=== PATIENT | female | born 2005 | race Caucasian/White ===

== ENCOUNTER 2024-11-06 08:00 | Outpatient (RCR) | payer OTHER, SELFPAY ==
--- NOTE | 2024-11-06 09:00 | BH.SGPN.GN ---
Behaviors/Verbalizations/Mental Status: [] Pt alert and oriented, neatly dressed and groomed. Eye contact good. Motor activity appropriate. Speech within normal limits. Affect congruent, mood hopeful. Thoughts linear, logical, no signs of hallucinations or delusions. Reviewed pt?s symptom tracker, no risk for suicidal ideation, plan, or intent 11/07/24. Client Response/Progress/Benefit: [] Pt was an active participant in group discussions. Attentive. Able to identify mental health wins including ?I feel optimistic hearing from everyone on my first day.? Pt's stressor today is ?being here in treatment.? The group offered pt suggests managing this stressor and emotional support which pt reported was helpful. Pt is feeling ?optimistic? this morning. Pt receptive to feedback from peers. Benefited from group support, encouragement, and feedback. Progress noted. Will continue IOP tx to prevent decompensation, improve daily functioning, and reduce negative thinking patterns. ? Narrative Note: []
--- NOTE | 2024-11-06 09:00 | BH.COMM_ITS ---
Communication Note Communication with Client Communication Note: Met with pt to complete paperwork, update any changes to pre-admission screening, and complete risk assessment. Low risk on [place] [facility] Scre[facility]. Consulted with Dr. Newton regarding current symptoms with orders to admit to IOP with dx of F33.2
--- NOTE | 2024-11-06 11:10 | BH.SGPN.GN ---
Behaviors/Verbalizations/Mental Status: [] Client alert and oriented, casually dressed and groomed. Eye contact good. Motor activity appropriate. Speech within normal limits. Affect congruent, mood anxious. Thoughts linear, logical, no signs of hallucinations or delusions. Client Response/Progress/Benefit: [] Pt engaged in session AEB client listening attentively to peers and providing input. Attentive and contributed to discussion as group worked on identifying thought patterns and behaviors that negatively affect self-confidence. Pt identified behaviors that affect their confidence as: lack of self-care and negative self-talk. Engaged in confidence building activity and worked with the group to identify strategies for improving self-confidence. Pt identified plans to daily affirmations as a means of improving own self-confidence. Benefited from increased education on self-confidence building skills. Pt will continue IOP tx to increase self-confidence, improve emotional regulation skills, and prevent decompensation. Narrative Note: []
--- NOTE | 2024-11-06 13:38 | BH.MDN ---
Multi-Disciplinary Note Note 45-min Individual: Time Started:: 10:45 Date: 11/06/24 Purpose of session/treatment goals addressed:: To gather information on pt's current stressors, symptoms, triggers, history, and tx goals. Another goal was to build rapport and provide emotional support. Eye Contact:: Good Motor Activity:: Appropriate Appearance:: Casual Speech:: Appropriate Mood:: Euthymic Affect:: Full Thoughts:: Linear, Logical and No evidence of hallucinations/delusions noted Staff Interventions:: rapport building, strengths perspective, treatment planning and other (psychosocial assessment) Client Response:: Pt responded well to session, open to meeting with therapist. Pt reports being ready to be in IOP tx and shared pt enjoyed connecting with peers earlier. Pt states her biggest concerns are anxiety and not having a lot of self-confidence. Pt stated that their physical health issues play a role in their self-confidence. Pt shared they have had chronic health issues since around 8 years old. Pt is currently using a cane being of health issues and pt recently saw a functional medicine doctor which was validating. Pt shared they have been minimized by providers throughout their life and a lot of their symptoms have been contributed to pt's anxiety. Pt stated they do think there is a neurological component to their physical health issues, but there are a lot of medical things pt has that run in pt's family. Pt has been through eating disorder tx at the [facility] and this was somewhat helpful. Pt reports they no longer restrict, but they still struggle with ARFD but they are actively working on this. Pt has history of self-harm, but they have not for about three years now. Pt shared they have a pretty good support system including their fiance, their dad, their sister, and their mom. Pt reports they enjoy being challenged in therapy and they currently journal which is helpful. Risks/Concerns:: Pt denies any active suicidal ideation, plan, or intent as of 11/06/24. Progress Toward Goals/Plan:: Pt's first day of IOP tx and pt reports being in process group this morning made pt feel optimistic and ready to heal. Pt shared she has done other types of therapy in the past and found it helpful. Pt is currently established with [id number], but pt is working on transitioning to a telehealth platform to make it more convenient. Pt reports anxiety is their biggest concern and pt feels like anxiety consumes them. Pt will continue IOP tx to prevent decompensation, improve daily functioning, and gain self-confidence. Time Stopped:: 11:20
--- NOTE | 2024-11-06 13:41 | BH.MTP_ITS ---
Master Treatment Plan Patient Information Program Physician:: Dr. Isela Newton Primary Therapist:: Terri Maravilla Psychiatric Diagnoses Psychiatric Diagnoses:: MDD, recurrent, severe, without psychosis F 33.2; KALYAN; Eating Disorder Unspecified. Diagnosis Code(s):: F 33.2 Estimated LOS Estimated LOS (in weeks):: 6 Problem/Goal #1 Problem/Goal #1 Stated Goal:: Stabilize anxiety level while increasing ability to function on daily basis. Description of Barriers: Pt has numerous health issues that impact mental health and functioning including chronic fatigue syndrome, GARCIA, and pt uses a cane for assistance with walking. Pt also noted that they have been in therapy in the past and there have been times when it was not a good fit so pt ended treatment. Functional Impact: Pt is a 19-year-old who was referred to [facility] due to worsening symptoms of anxiety, depression, and chronic health issues. At admission, pt reports symptoms of lack of motivation, feeling like a burden, anhedonia, guilt, issues with sleep, racing thoughts, anxiety constantly, and fear that something bad will happen. Pt's symptoms are impacting daily functioning and pt is planning to take leave from work due to mental health symptoms. Goal Relevant Strengths/Supports: Pt is established with outpatient therapy and psychiatry. Pt has a healthy support- their fianc?. Pt is motivated and enjoys their job. Objectives Objective #1: Stated Objective: Client will learn and implement 2-3 calming skills to reduce overall anxiety and manage anxiety symptoms. Interventions: Therapist and group sessions will help client identify physiological warning signs of anxiety, increase awareness of thoughts that increase anxiety, and identify behaviors that reinforce anxious symptoms. Group and individual counseling will teach client calming skills to help manage anxious symptoms. Discharge Criteria: Client will have achieved this goal when can verbalize at least 2 calming skills and reports skills successfully help reduce anxious symptoms. Target Date: 12/18/24 Review Date: 11/27/24 Status: open Objective #2: Stated Objective: Pt will increase ability to manage stressors and anxiety by gaining 2-3 distress tolerance skills. Interventions: Therapist will provide education on anxiety and low distress tolerance. Therapist will help pt explore personal symptoms and warning signs of anxiety. Therapist will teach pt coping skills to improve emotional regulation, mindfulness, and distress tolerance to help pt cope with anxiety in the moment. Discharge Criteria: Pt will have accomplished this goal when can report improved ability to manage stressors and identify at least 2 distress tolerance skills. Target Date: 12/18/24 Review Date: 11/27/24 Status: open Problem/Goal #2 Problem/Goal #2 Stated Goal:: Client will decrease depression, low motivation, and negative thinking patterns due to Major Depression Disorder through Intensive Outpatient Program. Description of Barriers: Pt has numerous health issues that impact mental health and functioning including chronic fatigue syndrome, GARCIA, and pt uses a cane for assistance with walking. Pt also noted that they have been in therapy in the past and there have been times when it was not a good fit so pt ended treatment. Functional Impact: Pt is a 19-year-old who was referred to [facility] due to worsening symptoms of anxiety, depression, and chronic health issues. At admission, pt reports symptoms of lack of motivation, feeling like a burden, anhedonia, guilt, issues with sleep, racing thoughts, anxiety constantly, and fear that somet carey bad will happen. Pt's symptoms are impacting daily functioning and pt is planning to take leave from work due to mental health symptoms. Goal Relevant Strengths/Supports: Pt is established with outpatient therapy and psychiatry. Pt has a healthy support- their fianc?. Pt is motivated and enjoys their job. Objectives Objective #1: Stated Objective: Client will learn and utilize 2-3 healthy coping strategies to manage depressive symptoms. Interventions: Therapist will utilize CBT techniques to assist client with understanding the connection between thoughts, feelings and behaviors. Education will be provided on behavioral activation. Therapist will assist client in learning internal coping strategies to manage depressive symptoms, along with helping client identify triggers. Discharge Criteria: Client will have achieved this goal when can verbalize and has practiced at least 2 healthy coping strategies that successfully manage depressive symptoms. Target Date: 12/18/24 Review Date: 11/27/24 Status: open Objective #2: Stated Objective: Client will identify and replace 2-3 negative thinking patterns that reinforce depressive symptoms. Interventions: Therapist will assist client in developing an awareness of the cognitive messages that reinforce depressive thinking. Therapist will also assist client in challenging negative thinking patterns. Discharge Criteria: Client will have achieved this goal when can identify at least 2 negative thinking patterns, replace negative thinking with more positive, affirmative messages and state no longer having thoughts of hurting self. Target Date: 12/18/24 Review Date: 11/27/24 Status: open
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
--- NOTE | 2024-11-08 09:05 | BH.SGPN.GN ---
Behaviors/Verbalizations/Mental Status: [] Pt alert and oriented, casually dressed and groomed. Eye contact good. Motor activity appropriate. Speech within normal limits. Affect congruent, mood calm. Thoughts linear, logical, no signs of hallucinations or delusions. Reviewed pt?s symptom tracker, no reported Si, plan, or intention. Client Response/Progress/Benefit: []Pt was an active participant in group discussions. Attentive. Pt stated that her mental health positive as walking IOP today which she found to helpful with getting her moving this morning. Pt reported additional mental health positive as starting to get some answers and direction for her health issues after meeting with several doctors recently. Pt stated it is helpful to have direction with her health even if there isn't concrete answers yet. Pt reported her stressor as continued medical issues. Pt seemed to benefit from support from peers. Will continue IOP services to increase healthy coping, challenge distorted thoughts, and prevent decompensation. Narrative Note: []
--- NOTE | 2024-11-08 10:05 | BH.SGPN.GN ---
Behaviors/Verbalizations/Mental Status: [] Eye contact is good. Motor activity is appropriate. Appearance is casual. Speech is Appropriate. Mood is content. Affect is congruent. Thoughts are linear and logical. No evidence of psychosis. Client Response/Progress/Benefit: [] Pt engaged participant AEB listening to others, engaging in activity, and providing feedback throughout. Attentive during psychoeducation and provided insight into obstacles that impede mental wellness. Pt shared with group current mental health reality and desired mental health reality. Identified barriers to desired reality which included difficulties with communication and perfectionism. Benefited from taking look at current mental health state and obstacles for progress. Pt to continue in IOP tx to prevent decompensation, stabilize mood, and improve functioning. Narrative Note: []
--- NOTE | 2024-11-08 11:10 | BH.SGPN.GN ---
Behaviors/Verbalizations/Mental Status: [] Eye contact is good. Motor activity is appropriate. Appearance is casual. Speech is Appropriate. Mood is depressed and anxious. Affect is congruent. Thoughts are linear and logical. No evidence of psychosis. Client Response/Progress/Benefit: [] Pt was an engaged participant in group discussion and activity. Worked with group to identify strategies to help overcome barriers and obstacles to desired reality. Group developed strategies for the common barriers. Identified personal barriers to desired reality which included catastrophizing and fear of moving forward. Was able to identify a skill to implement immediately to address fears. Pt seemed to benefit from increased repertoire of healthy coping skills/strategies to overcome common barriers to moving forward. Pt is to continue IOP prevent decompensation, increase healthy coping,and improve functioning. Narrative Note: []
--- NOTE | 2024-11-09 11:00 | BH.NA ---
Physical Data Vital Signs Pulse Rate: 81 Blood Pressure: 138/85 Height/Weight Height: 1.63 m Weight:: 59.874 kg Weight in Pounds: 132.0 lbs Current Medication Compliance Medication Compliance Do you take your medication as prescribed?: Yes Sensory/Communication Assess Communication Problems Do you have difficulty understanding what people are saying?: No Medical Problems/History Cardiac Conditions Cardiovascular: Other (See comments) (has been recently diagnosed with dysautonoma- still determining if it is POTS- sees a functional medicine doctor) Respiratory Conditions Respiratory: Asthma and Other (See comments) (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) Metabolic Conditions Metabolic: Other (See comments) (has had some issues with hypoglycemia before- states she plans and eats something every few hours to prevent these episodes) Gastrointestinal Conditions Gastrointestinal: Other (See comments) (has been having abdominal pain since around age 9- now contributed to dysautonomia- takes fiber daily to help) Musculoskeletal Conditions Musculoskeletal: Other (See comments) (uses cane to help her go from sitting to standing with dysautonomia- causes some dizziness- denies syncope) Additional History Additional comments:: recently diagnosed with chronic fatigue syndrome Surgical History Surgical History Have you had any surgeries? If so, list type and date:: Yes (tonsilectomy, tubal ligation) Substance Abuse Substance Abuse Please describe substance abuse in the last 30 days:: Client denies alcohol use. Client has been vaping nicotine daily for about 2 years. Client has a medical marijuana card and states she uses marijuana daily. Client has 1 cup of coffee per day. Mental Status Summary Mental Status Significant Findings/Observations on Appearance and Mood:: Client is alert and oriented x 4. Client is casually groomed with good hygiene. Client is cooperative with assessment. Client makes good eye contact. Client's voice has normal rate and volume. Client has appropriate affect. Client makes logical associations and has normal processing. Client denies delusions/hallucinations. Client denies SI. Suicide Assessment Suicidal Ideation Are you currently or have you been suicidal in the past?: Yes Suicidal Intentional Rating Scale (SIRS): Suicidal thoughts (past) Physician Notification Past Psychiatric History MH Treatment Hx Past Psychiatric Medications:: Strattera, Lamictal Age of first mental health symptoms: Client states she first felt anxious around age 9 and started having panic attacks and her stomach issues also started. Describe (age, circumstance, etc) any past hospitalizations: 2022 at [facility] Current providers for mental health treatment (counselor, psychiatrist, returned case inspector, etc.): has been seeing [facility] but has an intake next week with [facility] for psychiatry and therapy Fall Risk Assessment Age Age: Less than 60 Mental Status Mental Status: Willing & able to ask for assistance when needed Physical Status Physical Status: No problems Impairments Impairments: None Elimination Elimination: Continent AND independent Gait or Balance Gait or Balance: Walks with assistive device (e.g. cane, walker) Hx of Falls History of falls in the past 6 months: No known history Medications/Substances Psychotropics:: Antidepressants and Antipsychotics Others:: Antihypertensives Medications/substances used within the past 24 hours or ordered to administer: 3 or more of the medications/substances listed above Total Score Total Points:: 3 RN Summary of Impressions Impressions Recommendations Impressions: Psychiatric Issues: major depressive disorder, generalized anxiety disorder, borderline personality disorder Impression: General Medical Conditions: sees functional medicine for newly diagnosed dysautonomia- walks with cane to help go from sitting to standing. Level of Care How do the client's current symptoms and functional deficits support need for this level of care?: Client referred herself to IOP after seeking IOP/PHP online and finding this one that was close to where to she lives. Client was in [facility] in August 2024 for two weeks for her unspecified eating disorder (states she has had this since around age 12). Client states she felt unsafe there and left AMA, but knew she needed an IOP or PHP for her mental health. Client states her eating has somewhat improved since being in the [facility] and states she has gained some weight and still has more to gain per her medical team. Client states she does have a health head athletic trainer/strength coach, lard maker, and functional medical doctor she follows with. Client has been having ongoing health issues and was recently diagnosed with dysautonomia with some testing still being done. Client uses cane to walk to steady herself. Client states she started on Abilify about 5 days ago and does state she has felt positive effects from this. Client reports intrusive thoughts about something bad happening, decreased motivation, and low self-confidence. Client is hopeful IOP will help her with confidence. Client denies SI at this time. IOP will promote gains and prevent further decompensation while providing social support and skills training. Nutritional Screen Height/Weight Height: 1.63 m Weight:: 59.874 kg Weight in Pounds: 132.0 lbs Nutrition Screening Normal Weight: 58.967 kg Normal/Usual Weight in Pounds: 130.0 lbs Have you lost weight without trying: No (hx eating disorder since age 12, recently in [facility], eating has improved and she is gaining weight slowly) Have you been eating poorly because of a decreased appetite: No Recently been on tube feeds, TPN, or have any nutritional access device in place: No Have any large open wounds or wounds that are not healing: No Calculated Weight Change: [id number] Change in weight Score: 1 MST Screening Tool Score: 1
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
--- NOTE | 2024-11-09 11:02 | BH.DR.ITP ---
Initial Treatment Plan Patient Information Visit Information: ADMISSION DATE: EXPECTED LOS: 6-8 weeks Diagnoses:: MDD, KALYAN Problems/Symptoms Problem #1:: MDD Symptom:: Patient reported depressed mood, suicidal ideation, anhedonia, poor appetite, poor sleep, low energy, difficulty with concentration as well as crying spells and excessive guilt Problem #2:: KALYAN Symptom:: igh levels of baseline anxiety about everything including health, finances, doors being closed and secured etc
[2024-11-09 11:34] VITALS: BP 138/85; PULSE 81
--- NOTE | 2024-11-14 09:00 | BH.SGPN.GN ---
Behaviors/Verbalizations/Mental Status: [] Client alert and oriented, casual appearance. Eye contact good. Motor activity appropriate. Speech within normal limits. Affect congruent, mood anxious. Thoughts linear, logical, no signs of hallucinations or delusions. Reviewed client's symptom tracker, no risk for suicidal ideation, plan, or intent. Client Response/Progress/Benefit: [] Client responded well to session AEB listening to others and sharing thoughts/feelings. Client reported mental positive as being able to challenge guilt for canceling a IOP day earlier this week when she didn't feel good. Client reported additional positive as feeling more present and less dissociated yesterday. Client noted current stressor is continuing to work through health issues and her partner switching jobs. Appeared to benefit from support from peers. Will continue IOP tx to improve confidence, increase distress tolerance, and prevent decompensation.
--- NOTE | 2024-11-14 10:10 | BH.SGPN.GN ---
Behaviors/Verbalizations/Mental Status: []Pt alert and oriented, neatly dressed and groomed. Eye contact fair. Motor activity appropriate. Speech within normal limits. Affect congruent, mood engaged. Thoughts linear, logical, no signs of hallucinations or delusions Client Response/Progress/Benefit: [] Pt took notes and contributed to group discussions. Attentive during psychoeducation on growth mindset. Interactive group discussion on fixed mindset in which group verbalized their current fixed mindsets and how they affect their mental health. Pt shared common fixed mindset thoughts they have. Pt shared a personal fixed thought I can?t finish things and I can?t get better.? Pt able to connect negative impact fixed thoughts have on functioning. Pt benefited from increased awareness of growth mindset and fixed thoughts and how fixed thoughts impact their mental health. Will continue IOP tx to prevent decompensation, improve daily functioning, and gain healthy coping skills. ? Narrative Note: []
--- NOTE | 2024-11-14 11:15 | BH.SGPN.GN ---
Behaviors/Verbalizations/Mental Status: []Pt alert and oriented, casually dressed and groomed. Eye contact good. Motor activity appropriate. Speech within normal limits. Affect congruent, mood content. Thoughts linear, logical, no signs of hallucinations or delusions. Client Response/Progress/Benefit: [] Pt was an active participant during activity and discussion. Pt did well to remain attentive and participate as group worked on identifying characteristics and benefits of adopting a growth mindset. Worked with fellow participants in reframing the example fixed thoughts into growth mindset thoughts. Pt worked on changing own fixed thought. Pt?s reframed thought was ?I am able to learn how to manage my sx everyday? Pt attentive during discussion about different strategies that can help with fostering a growth mindset. Pt appeared to benefit from challenging own thoughts and engaging in the activity. Pt will continue IOP tx to increase distress tolerance, improve self-compassion, and prevent decompensation. Narrative Note: []
--- NOTE | 2024-11-15 09:05 | BH.SGPN.GN ---
Behaviors/Verbalizations/Mental Status: [] Eye contact is good. Motor activity is appropriate. Appearance is casual. Speech is Appropriate. Mood is euthymic. Affect is full. Thoughts are linear and logical. No evidence of psychosis. Reviewed daily check in sheet and no reports of suicidal ideations or intent. Client Response/Progress/Benefit: [] Pt was an active participant in group discussions. Attentive. Daily symptom tracker notes 04/04 for depression and anxiety. Able to identify mental health wins and healthy habits. She shared with the group that she recently reframed how she perceives her goals. It was a very simple change in that she changed the wording from weekly goals to weekly experiments. This perspective all her to be view setback in a growth mindset. She made dinner last night and felt accomplished. Utilizing opposite-action, re-framing, goal setting which has significantly benefited her mental health this week. Progress noted. Benefited from group support, encouragement, and feedback. Will continue in IOP to prevent decompensation, increase healthy coping, and improve functioning. Narrative Note: []
--- NOTE | 2024-11-15 10:10 | BH.SGPN.GN ---
Behaviors/Verbalizations/Mental Status: [] Eye contact is good. Motor activity is appropriate. Appearance is casual. Speech is Appropriate. Mood is dysthymic. Affect is congruent. Thoughts are linear and logical. No evidence of psychosis. Client Response/Progress/Benefit: [] Pt was engaged and participating throughout, providing input and taking notes. Attentive during psychoeducation on anxiety and cognitive triangle. Participated in an interactive discussion on defining anxiety and identifying cognitive and physiological symptoms of anxiety. The group discussed helpful vs harmful anxiety. Pt identified their physical/physiological signs of anxiety which includes: headache, stomach issues, restlessness, and temp dysregulation. Benefited from increased awareness and insight on anxiety and its impact. Will continue in IOP to prevent decompensation, stabilize mood, and promote use of healthy coping skills.
--- NOTE | 2024-11-15 11:15 | BH.SGPN.GN ---
Behaviors/Verbalizations/Mental Status: []Pt alert and oriented, casually dressed and groomed. Eye contact good. Motor activity appropriate. Speech within normal limits. Affect congruent, mood euthymic. Thoughts linear, logical, no signs of hallucinations or delusions. Client Response/Progress/Benefit: [] Pt was an active participant AEB pt providing input and listening attentively to peers. Attentive during psychoeducation on mindfulness coping skills and their impact on reducing anxiety and improving overall mental health wellness. Group was able to identify self-soothing and mind-based coping skills which included: 5-senses, meditation, deep breathing, TIPP, thought challenging, categories, and progressive muscle relaxation. Pt would like to work on using meditation more regularly to reduce anxiety. Appeared to benefit from increasing repertoire of anxiety reduction skills. Pt will continue IOP to increase distress tolerance skills, improve daily functioning, and reduce negative self-talk. Narrative Note: []
--- NOTE | 2024-11-15 14:34 | BH.MDN ---
Multi-Disciplinary Note Note 45-min Individual: Time Started:: 12:10 Date: 11/15/24 Purpose of session/treatment goals addressed:: To work on goal #1 of pt's tx plan and to practice dialectical thinking. Eye Contact:: Good Motor Activity:: Appropriate Appearance:: Casual Speech:: Appropriate Mood:: Euthymic Affect:: Full Thoughts:: Linear, Logical and No evidence of hallucinations/delusions noted Staff Interventions:: thought challenging, mindfulness skills, strengths perspective, goal setting and taught coping skills (dialectical thinking) Client Response:: Pt responded well to session, open to meeting with therapist. Pt reports today's topic was helpful and shared she benefitted from looking into her anxiety thought patterns and safety behaviors. Pt stated her safety behaviors include reassurance seeking, skin-picking, under eating, and conflict avoidance. Pt shared she also connected a lot with perfectionism as a safety behavior. Pt stated in high school she did everything and this ended up burning pt out quite a bit. Pt shared she has been trying to work on being less perfectionistic and pt was receptive to the idea of using dialectical thinking to help with this. Discussed what dialectical thinking is and how it can help pt. Pt reflected on current progress as well as progress pt would still like to see. Pt shared one of the things she has noticed is her anxiety is still higher than I'd like it to be. Pt plans to bring this up to her outpatient medication provider. Pt shared even though it is higher than pt would like, pt feels she is coping much better than she was previously. Risks/Concerns:: Pt denies any suicidal ideation, plan, or intent. Pt denies any thoughts of . Progress Toward Goals/Plan:: Pt continues to respond well to IOP tx AEB pt's report of using healthy coping skills outside IOP and report of tolerating her Abilify well. Pt stated she still feels that her anxiety is higher than baseline and pt wants to bring up alternative medication ideas to her outpatient psychiatrist. Pt receptive to working on dialectical thinking for homework. Pt will continue IOP tx to promote mood stability, combat distortions, and improve self-compassion. Time Stopped:: 12:50
--- NOTE | 2024-11-21 09:00 | BH.SGPN.GN ---
Behaviors/Verbalizations/Mental Status: [] Pt alert and oriented, neatly dressed and groomed. Eye contact good. Motor activity appropriate. Speech within normal limits. Affect congruent, mood anxious. Thoughts linear, logical, no signs of hallucinations or delusions. Reviewed pt?s symptom tracker, no risk of suicidal ideation, plan, or intent 11/21/24. Client Response/Progress/Benefit: []Pt was an active participant in group discussions. Attentive. Per patients daily symptom tracker, pt indicates a 2/5 for depression, with a 5 being severe, and a 3/5 for anxiety. Pt's mental health positives included making it to group despite being tired, and enjoying a busy weekend of seeing family members. The client stated that while the weekend was tiring, she was able to enjoy herself and appreciated being able to connect with family members. She also expressed happiness at being able to show up for group despite being tired. Pt's stressor is her who is struggling with his current job. The client reports that she is anxious and stressed as her does not enjoy his job and has been very anxious. Pt seemed to benefit from support from peers. Will continue PHP tx to promote increased confidence, reduce negative thinking patterns, and prevent decompensation.
--- NOTE | 2024-11-21 10:10 | BH.SGPN.GN ---
Behaviors/Verbalizations/Mental Status: [] Client alert and oriented, casually dressed and groomed. Eye contact good. Motor activity appropriate. Speech within normal limits. Affect congruent, mood euthymic Thoughts linear, logical, no signs of hallucinations or delusions. Client Response/Progress/Benefit: [] Client responded well to session AEB taking notes throughout and listening attentively to others. Client was attentive throughout group activity identifying famous individuals and how they overcame failure to be successful. Client helped group identify how fear of failure can impact mental health and relationships. Client personally identified it leads isolation. Client participated in experiential activity, working with group members to problem solve. Appeared to benefit from increased knowledge of fear of failure. Will continue IOP tx to improve self-confidence, reduce distorted thinking patterns, and reduce avoidance. Narrative Note: []
--- NOTE | 2024-11-21 11:10 | BH.SGPN.GN ---
Behaviors/Verbalizations/Mental Status: [] Client alert and oriented, casually dressed and groomed. Eye contact good. Motor activity appropriate. Speech within normal limits. Affect constricted, mood euthymic. Thoughts linear, logical, no signs of hallucinations or delusions. Client Response/Progress/Benefit: [] Client responded well to session, engaged in the experiential activity and attentive throughout group processing. Client reported fear of failure has kept client from having relationships. Client completed fear of failure worksheet and was able to identify thoughts and behaviors that reinforce personal fear of failure including self doubt. Client participated in small group discussion regarding strategies to overcome fear of failure. Identified wanting to practice radical acceptance and centeno thinking. Appeared to benefit from increased knowledge of strategies to combat fear of failure and gaining self-awareness. Client will continue IOP tx promote gains and increase overall functioning. Narrative Note: []
--- NOTE | 2024-11-23 09:05 | BH.SGPN.GN ---
Behaviors/Verbalizations/Mental Status: [] Eye contact is good. Motor activity is appropriate. Appearance is casual. Speech is Appropriate. Mood is euthymic. Affect is full. Thoughts are linear and logical. No evidence of psychosis. Reviewed daily check in sheet and no reports of suicidal ideations or intent. Client Response/Progress/Benefit: [] Pt was an active participant in group discussions. Attentive. Daily symptom tracker notes 3/5 for anxiety and 2/5 for depression/irritability. Shared with the group ?significant? panic attacks and mental health crisis yesterday. Proud of herself for ?working through it?. ?My fianc? said it was the worse he has seen me?. Did not elaborate on the trigger however increase confidence in her ability to manage panic in the future as she ?made it through that one?. Progress noted. Benefited from group support, encouragement, and feedback. Will continue in IOP to maintain safety, increase healthy coping, and prevent decompensation.? Narrative Note: []
--- NOTE | 2024-11-23 10:10 | BH.SGPN.GN ---
Behaviors/Verbalizations/Mental Status: [] Client alert and oriented, casual appearance. Eye contact good. Motor activity appropriate. Speech within normal limits. Affect congruent, mood euthymic. Thoughts linear, logical, no signs of hallucinations or delusions. Client Response/Progress/Benefit: [] Pt receptive to session AEB contributing to small group discussion, as well as listening attentively to others, and taking notes. Worked with group to brainstorm the positive and negative aspects of stress on physical and mental health. Group did well to identify the benefits of stress as well as the impact of distress on performance, relationships, and mental health. Pt identified their personal top stressors as: relationships, health, and finances. Patient stated when stress is overwhelming they tend to feel irritable, have apathy, and isolate. Pt seemed to benefit from increased awareness of current stressors and impact stress has on mental health. Pt will continue IOP tx to improve emotion regulation, challenge negative thoughts, and prevent decompensation.
--- NOTE | 2024-11-23 11:05 | BH.SGPN.GN ---
Behaviors/Verbalizations/Mental Status: [] Eye contact is good. Motor activity is appropriate. Appearance is casual. Speech is Appropriate. Mood is euthymic. Affect is congruent. Thoughts are linear and logical. No evidence of psychosis. Client Response/Progress/Benefit: [] Pt was an attentive participant in group discussions and actively engaged during experiential activity. Attentive during psychoeducation on the 4 A's (Avoid, adapt, alter, accept) of coping with stress. Identified one of the 4 A's to address one their top stressors.. Participated with peers on identifying the connection between the experiential activity and utilization of stress management skills. According to group both the activity and stress management require; adjusting strategies, reliance on larger support group, and oftentimes can't be done alone. Benefited from increased awareness of stress management strategies. Pt will continue IOP to improve mood stability, increase healthy copiong, and prevent decompensation. Narrative Note: []
--- NOTE | 2024-11-27 09:05 | BH.SGPN.GN ---
Behaviors/Verbalizations/Mental Status: [] Pt alert and oriented, neatly dressed and groomed. Eye contact good. Motor activity appropriate. Speech within normal limits. Affect constricted, mood anxious and optimistic. Thoughts linear, logical, no signs of hallucinations or delusions. Reviewed pt?s symptom tracker, no risk for suicidal ideation, plan, or intent 11/27/24. Client Response/Progress/Benefit: [] Pt was an active participant in group discussions. Attentive. Able to identify mental health wins including ?I had some medication changes yesterday and I didn?t shut down from the stress.? Pt feels that she is dealing with stressors better than she would have in the past. Pt's stressor today is ?my health and hormones have just been tough.? The group offered pt suggests managing this stressor and emotional support which pt reported was helpful. Pt is feeling ?foggy but optimistic? this morning. Pt receptive to feedback from peers. Benefited from group support, encouragement, and feedback. Progress noted. Will continue IOP tx to promote mood stability, reduce negative self-talk, and improve daily functioning. Narrative Note: []
--- NOTE | 2024-11-27 10:10 | BH.SGPN.GN ---
Behaviors/Verbalizations/Mental Status: [] Client alert and oriented, casually dressed and groomed. Eye contact good. Motor activity appropriate. Speech within normal limits. Affect congruent, mood euthymic. Thoughts linear, logical, no signs of hallucinations or delusions. Client Response/Progress/Benefit: [] Client responded well to session, contributing to discussion and engaged during the activity. Group identified the benefits of change which included: increased confidence, progressing towards goals, and improving mental and physical health. Worked with the group to identify barriers to change, which included: uncomfortable emotions such as anxiety, lack of energy, lack of supports, and negative influences. Client participated along with group in activity where they identified and discussed the emotions related to change. Benefited from increased awareness and understanding of emotions, benefits, and barriers related to change. Will continue IOP tx to challenge distortions, improve confidence, and prevent decompensation.
--- NOTE | 2024-11-27 13:52 | BH.MDN_ITS ---
Multi-Disciplinary Note Note 30-min Individual: Time Started:: 11:30 Date: 11/27/24 Purpose of session/treatment goals addressed:: To review strategies that have been helping pt cope and to set goals for the week. Eye Contact:: Good Motor Activity:: Appropriate Appearance:: Neat Speech:: Appropriate Mood:: Euthymic and Anxious Affect:: Full Thoughts:: Linear, Logical and No evidence of hallucinations/delusions noted Staff Interventions:: CBT techniques, strengths perspective, reviewed DSM- 5 and goal setting Client Response:: Pt responded well to session, open to meeting with therapist. Pt reports feeling overall anxious and shared I still feel like my anxiety is at like a 7/10. Pt acknowledges that certain stressors, including their fiances job, has contributed to the higher anxiety. Pt stated he just put in his resignation, so pt is hoping this reduces anxiety and stress for the both of them. Pt also had some medical frustrations recently and this has been leading to higher anxiety as well. Pt feels they are coping well with these stressors and shared that this weekend pt let myself have a mini meltdown and then pt was able to use other coping skills. We normalized this as realistic progress and therapist reminded pt to continue utilizing dialectical thinking so pt does not frame their responses as all good or all bad. Pt has been working on being more mccollum with their thinking and striving to be less perfectionistic. Pt reports plan to continue practicing calming skills as well as reframing skills for their weekly goal. Risks/Concerns:: denies any suicidal ideation, plan, or intent. Pt denies any thoughts of . Progress Toward Goals/Plan:: Pt continues to make progress towards tx goals AEB pt's self-report of using healthy coping skills on a consistently basis. Pt shares that their anxiety is still higher than baseline and pt is hoping to get started on another medication by their outpatient provider. Pt will continue IOP tx to promote mood stability, increase distress tolerance, and further reduce anxiety. Time Stopped:: 12:00
--- NOTE | 2024-12-19 09:00 | BH.SGPN.GN ---
Behaviors/Verbalizations/Mental Status: [] Pt alert and oriented, Neatly dressed and groomed. Eye contact good. Motor activity appropriate. Speech within normal limits. Affect congruent, mood calm. Thoughts linear, logical, no signs of hallucinations or delusions. Reviewed pt?s symptom tracker, 0/5 with 5 being severe for risk for suicidal ideation, indicates a 0/5 for plan, and intent to kill self. Pt does not appear to be imminent risk to harm self.12/19/24. Client Response/Progress/Benefit: []Pt was an active participant in group discussions. Attentive. Per patients daily symptom tracker, pt indicates a 0/5 for depression and a 1/5 for anxiety, with 5 being severe. Pt shared their mental health positive as coming to group today despite physically not feeling well, stating that they know they will feel better mentally if they attend group. Pt's other mental health positive was going shopping with grandma and buying some new clothes. Pt stated that they would typically not go shopping, but enjoyed spending time and connecting with grandma. Pt stressor was family members dealing with some health issues. Pt reports that their dad asked them to move in to take care of his dogs while he recovers from spinal surgery. The client was able to set a boundary with dad, saying that they could provide support, but not to that degree.Pt's is trying to find a new job that will support them both which pt reports is causing some stress. Pt was supportive and attentive to others in the group. Pt seemed to benefit from support from peers. Will continue IOP tx to promote healthy coping mechanisms, reduce negative thinking patterns, and prevent decompensation.
== END 2024-11-27 23:59 ==
LOC: BHIOP 08:00
PROVIDERS: Referring Provider Internal Medicine; Visit Provider Internal Medicine
DX: F33.2 Major depressive disorder, recurrent severe without psychotic features (principal); F41.1 Generalized anxiety disorder; F50.9 Eating disorder, unspecified
CPT/HCPCS: S9480; 90832; 90834; 90853

== ENCOUNTER 2024-11-28 08:05 | Outpatient (RCR) | payer OTHER, SELFPAY ==
--- NOTE | 2024-11-29 09:05 | BH.SGPN.GN ---
Behaviors/Verbalizations/Mental Status: [] Eye contact is good. Motor activity is appropriate. Appearance is casual. Speech is Appropriate. Mood is euthymic. Affect is full. Thoughts are linear and logical. No evidence of psychosis. Reviewed daily check in sheet and no reports of suicidal ideations or intent. Client Response/Progress/Benefit: [] Pt was an active participant in group discussions. Attentive. Daily symptom tracker notes 03/04 for anxiety. Able to identify mental health wins and healthy habits. Increased awareness and acceptance of limitations. Her chronic illness have been impacting her functioning recently so she took a rest day which was very helpful. Elaborated on its impact. Decreased anxiety in the AM which she has not experienced in years. Decreased intensity and frequency of emotions which has improved functioning as well as her relationship. Feels hopeful and optimistic. Benefited from group support, encouragement, and feedback. Will continue in IOP to prevent decompensation, increase healthy coping, and improve functioning. Narrative Note: []
--- NOTE | 2024-11-29 10:15 | BH.SGPN.GN ---
Behaviors/Verbalizations/Mental Status: []Pt alert and oriented, neatly dressed and groomed. Eye contact good. Motor activity appropriate. Speech within normal limits. Affect constricted, mood anxious. Thoughts linear, logical, no signs of hallucinations or delusions. Client Response/Progress/Benefit: [] Pt was an active participant AEB taking notes and engaging in group activity. Connected with the topic of pitfalls and listened to group discussion on barriers that prevent from choosing a healthier path to mental wellness. Group worked together to identify examples of personal pitfalls. These examples included; having unrealistic expectations, not trusting, not asking for help, and shutting down. Pt benefited from group as Pt learned to better identify potential barriers to improving mental health symptoms. Pt will continue IOP tx to reduce intensity of anxiety, improve mood stability, and increase self-esteem. Narrative Note: []
--- NOTE | 2024-11-29 11:10 | BH.SGPN.GN ---
Behaviors/Verbalizations/Mental Status: []Client alert and oriented, casually dressed and groomed. Eye contact good. Motor activity appropriate. Speech within normal limits. Affect congruent, mood content. Thoughts linear, logical, no signs of hallucinations or delusions. Client Response/Progress/Benefit: [] Pt receptive of session, engaged throughout AEB Pt actively listening and contributing to discussion as well as taking notes.? Pt participated in the experiential activity and did well to communicate ideas with peers and manage emotions. Pt attentive as group processed how the emotions and perspective of the group impacted the activity. Pt was highly encouraging during the activity which helped peers. Group worked together to identify different coping skills to help manage pitfalls. Pt identified pitfalls they struggle with as all or nothing thinking, shutting down, needing control. Pt plans to work on their pitfall by ?practicing willingness vs willfulness.? Benefited from identifying personal pitfalls and strategies to overcome these pitfalls. Pt will continue IOP tx to promote mood stability, increase distress tolerance skills, and improve self-esteem. Narrative Note: []
--- NOTE | 2024-11-30 10:31 | PCM.BH.PN ---
Intake Vital Signs 11/09/24 11:34 11/30/24 10:31 Height 1.63 m 1.63 m Weight: 59.874 kg BP 138/85 H Pulse 81 BH Intake Visit Reasons: f/u MDD Allergies Antihistamines - Alkylamine Allergy (Verified 11/09/24 11:07) autonomic reactions, BP issues nitrofurantoin (From Macrobid) Allergy (Verified 11/09/24 11:07) GI upset quetiapine (From Seroquel) Allergy (Verified 11/09/24 11:07) palpitations, chest pressure Sulfa (Sulfonamide Antibiotics) Allergy (Verified 11/09/24 11:07) GI upset amoxicillin Adverse Reaction (Verified 11/09/24 11:07) GI upset Medications ?Medication ?Instructions ?Recorded ?Confirmed ?Type Probiotic DAILY 11/09/24 History albuterol sulfate 90 mcg/actuation 2 puff inhalation PRN shortness of 11/09/24 History aerosol inhaler breath or wheezing aripiprazole 2 mg tablet (Abilify) 2 mg PO DAILY 11/09/24 11/09/24 History azo womens priobiotic 11/09/24 History budesonide-formoterol HFA 80 2 puff inhalation BID 11/09/24 11/09/24 History mcg-4.5 mcg/actuation aerosol inhaler buspirone 15 mg tablet 15 mg PO BID 11/09/24 11/09/24 History cholecalciferol (vitamin D3) 25 25 mcg PO DAILY 11/09/24 11/09/24 History mcg (1,000 unit) capsule (Vitamin D3) cranberry-B.rqwoqenvn-J-Ju phos tab PO 11/09/24 History 480 mg-20 mg-100 million cell tablet (Cranberry-Probiotic) dicyclomine 20 mg tablet 20 mg PO TID PRN abdominal pain 11/09/24 11/09/24 History drospirenone 3 mg-ethinyl 1 tab PO 11/09/24 History estradiol 0.03 mg tablet ferrous sulfate 325 mg (65 mg 325 mg PO DAILY 11/09/24 11/09/24 History iron) tablet (Feosol) lieliseo jen 11/09/24 History magnesium chelate, malate (OptiMag) 125 mg PO DAILY 11/09/24 11/09/24 History propranolol 10 mg tablet 10 mg PO BID 11/09/24 11/09/24 History psyllium 500 mg capsule 1.56 g PO DAILY 11/09/24 11/09/24 History venlafaxine 37.5 mg 37.5 mg PO DAILY 11/09/24 11/09/24 History capsule,extended release 24 hr (Effexor XR) venlafaxine 75 mg capsule,extended 75 mg PO DAILY 11/09/24 11/09/24 History release 24 hr (Effexor XR) HPI () History of Present Illness History provided by: patient Chief complaint: Follow-up MDD HPI: -Current psychiatric medications: Effexor 112.5, BuSpar 15 mg 3 times a day, Abilify 2 mg daily, propranolol 2 mg twice daily decent. Depression has been minimal, 3-4 max. changed with menstruation 36 hours. Elevated anxiety, psychiatrist yesterday, wean off effexor and buspar, zoloft from effexor, decreasing buspar, palpitations increased which increased anxiety, propranolol 10mg BID, sleep better through the night, passive out of hte week passive, -SUBJECTVE: Reports her mood and depression have been fairly well managed however she still quite anxious. Does note that right before she started her period over the weekend she did briefly feel depressed and had thoughts of (with no plan) but it lasted less than 36 hours and she used her coping skills and then symptoms completely resolved when she started her period. Sleeping better through the night. Did just establish with a nurse practitioner at [facility] for psych care and will no longer be seeing her previous psychiatry provider. Notes that with her elevated anxiety they are planning to cross titrate her from Effexor to Zoloft and wean her off of BuSpar. She notes she supposed to take 75 mg for 1 week and then go down to 37.5 mg for 1 week and then she will follow-up in the office and will be started on Zoloft and this will be uptitrated. Patient did try Zoloft before with no effect but noted it was only for 3 weeks so she is open to trialing Zoloft but she does not think she had an adequate trial. She is also post to decrease BuSpar to twice a day and will be weaned off of that as well. Presently no SI/HI, no AH/VH Exam Mental Status Exam- Psych () Appearance casually dressed, adequately groomed, no apparent distress and other (Did come in with a cane again but did not seem to be using it) Attitude cooperative and calm Activity/Motor Behavior MSE activity/motor behavior finding no adventitious movements Speech regular rate and regular volume Mood euythmic Affect full range Thought Process linear and logical Thought Content no delusions and no hallucinations Suicidal Ideation none Homicidal Ideation none Attention intact Concentration intact Sensorium/Orientation awake and alert Memory/Cognition intact Insight fair Judgement fair Assessment & Plan () Assessment & Plan (1) KALYAN (generalized anxiety disorder): Plan: Still having high levels of anxiety, her psychiatric provider nurse practitioner that she just establish with is cross tapering her Effexor to Zoloft. She was supposed to be cutting down on her BuSpar as well to taper off of this, advised that I would not recommend doing both at the same time and if she has been cross tapering would recommend continuing BuSpar at current dosing during this transition and can consider tapering off from there but that she can follow the recommendation of her new provider if she is more comfortable doing so, she reports she would like to continue BuSpar at current dose while making the above change which is reasonable. (2) MDD (major depressive disorder), recurrent severe, without psychosis: Plan: Depression is doing very well on Effexor, Abilify, and BuSpar, due to the anxiety she is currently being cross-taper from Effexor to Zoloft, advised to continue BuSpar at same dosing will making this change, as above. Also discussed that symptoms may worsen before potentially improving as she is being completely tapered off over 2 weeks before starting the new medication based on her report, she verbalized her understanding and notes that cynthia will be monitoring her closely during this transition. She will be continuing at IOP as well (3) Eating disorder, unspecified: Plan: She notes that she is going to start an outpatient eating disorder program when she is done with IOP Charges/Coding Behavior Health Behavior Health EST Pt E/M: [id number] Est Pt Level IV
--- NOTE | 2024-11-30 15:59 | BH.MTP_ITS ---
Treatment Plan Review Demographics Date of Admission:: 11/06/24 Date of Treatment Plan Review:: 11/30/24 Admitting Diagnoses:: MDD, recurrent, severe, without psychosis F 33.2; KALYAN; Eating Disorder Unspecified. Current Diagnoses:: MDD, recurrent, severe, without psychosis F 33.2; KALYAN; Eating Disorder Unspecified. Patient Status Patient's Response to Treatment:: Pt has responded well to session AEB cons istently attending IOP and engaging in both individual and group therapy sessions. Pt consistently completes homework provided from individual counseling. Pt contributes actively during group discussions, takes notes, appears to listen to others, and engages in group activities. Pt's DSM-5 overall scores decreased by 36% since admission. Pt's score for depression has decreased by 50% since admission and anxiety has decreased by 13%. Status of Current Problems and Symptoms: Pt's symptoms are improving, but pt reports her anxiety is still higher than baseline and pt is working on adjusting medication and using healthy coping skills. Pt reports she is getting better in a lot of areas, but pt thinks after IOP she will want to return to working on her ED and pt is looking into virtual programs for this. Pt's health is an ongoing stress and pt continues to work with her medical providers for this. Progress Problem #1: Problem Name:: Anxiety Status of Goals:: Objective 1- in progress. Pt reports a 13% reduction in anxiety since admission and reports using opposite action, calming skills, and self-talk on a consistent basis. Objective 2- in progress. Pt is working on building distress tolerance, setting boundaries to avoid taking on too much, and using self-care practices. Team Recommendations:: Treatment team encourages pt to continue working on distress tolerance skills, advocating for herself, and using calming techniques. Problem #2: Problem Name:: Depression and negative thinking Status of Goals:: Objective 1-in progress. Pt's depression scores have decreased by 50% since admission. Pt has been journaling wins, giving herself kehinde, and setting realistic goals. Objective 2- in progress. Pt is able to catch distorted self-talk and she is working on using self-compassion and dialectical thinking. Team Recommendations:: Treatment team encourages pt to continue working on combating all or nothing thinking that reinforces pt's perfectionism and to continue working on maintenance skills such as journaling and goal setting.
--- NOTE | 2024-12-03 09:05 | BH.SGPN.GN ---
Behaviors/Verbalizations/Mental Status: [] Eye contact is good. Motor activity is appropriate. Appearance is casual. Speech is Appropriate. Mood is euthymic. Affect is full. Thoughts are linear and logical. No evidence of psychosis. Reviewed daily check in sheet and no reports of suicidal ideations or intent. Client Response/Progress/Benefit: [] Pt was an active participant in group discussions. Attentive. Active participant in group discussions. Attentive. Daily symptom tracker notes minimal distress. Shared with the group several medication in the past couple weeks which is what I wanted however she is anxious how she will respond. Feeling optimistic about the progress that she has made in IOP. Consistent use of skills with improvement in mood, communication, relationships, and overall functioning. States despite increased anxiety related to medications she is not overthinking, catastrophizing, or ruminating. Progress noted. Benefited from group support, encouragement, and feedback. Will continue in IOP to prevent decompensation, stablize mood, and increase healthy coping. Narrative Note: []
--- NOTE | 2024-12-03 10:15 | BH.SGPN.GN ---
Behaviors/Verbalizations/Mental Status: [] Pt alert and oriented, casually dressed and groomed. Eye contact good. Motor activity appropriate. Speech within normal limits. Affect congruent, mood content. Thoughts linear, logical, no signs of hallucinations or delusions. Client Response/Progress/Benefit: [] Pt participated in group discussions. Attentive during psychoeducation on the CBT Roberts (Thoughts, Behaviors, Emotions). Engaged in group discussion on how thoughts and behaviors can contribute to maintaining adverse feelings, such as depression, anxiety, and irritability. Completed worksheet in which pt identified obstacles and/or thoughts that are keeping them stuck. Shared obstacles that included; unrealistic expectations, perfectionism, self-doubt, and codependency. Pt benefited from increased awareness of the basis of CBT therapy as well as specific thoughts that are impacting pt's progress. Will continue in IOP to prevent decompensation, increase healthy coping, and improve functioning. Narrative Note: []
--- NOTE | 2024-12-03 11:15 | BH.SGPN.GN ---
Behaviors/Verbalizations/Mental Status: []Pt alert and oriented, casually dressed and groomed. Eye contact good. Motor activity appropriate. Speech within normal limits. Affect congruent, mood euthymic. Thoughts linear, logical, no signs of hallucinations or delusions. Client Response/Progress/Benefit: [] Pt responded well to session, contributing to discussion and attentive throughout. Pt identified a negative thought that has kept them stuck. Pt's thought was I won?t feel well enough and my health issues will flare.? Pt reported when they think this way, pt reassurance seeks, shuts down, and becomes co-dependent. ?Pt worked to reframe the thought by finding more rational, realistic ways to look at the thoughts and then processed them within group setting. Pt reframed the thought to ?my health issues might flare, and I might not feel well but I can still do it anyway.? Pt appeared to benefit from practicing challenging negative thinking with peers and gaining coping skills. Pt will continue IOP tx to improve self-confidence, reduce avoidance, and improve daily functioning. Narrative Note: []
--- NOTE | 2024-12-04 10:00 | BH.SGPN.GN ---
Behaviors/Verbalizations/Mental Status: []Eye contact is good. Motor activity is appropriate. Appearance is casual. Speech is Appropriate. Mood is engaged and calm. Affect is congruent. Thoughts are linear and logical. No evidence of psychosis. Client Response/Progress/Benefit: [] Pt was an active participant in group discussions. Attentive during psychoeducation. Contributed during interactive discussions in which peers attempted to define crisis. Group identified crisis examples. Group also worked together to identify warning signs and unhealthy responses to crisis which included shutting down, isolation, avoidance, over-thinking, disordered eating, and self-harm. Pt identified top 3 warning signs as: lack of self-care, not being social, and not enjoying hobbies. Benefited from increased understanding of crisis and awareness of personal responses to crisis. Pt will continue IOP tx to promote mood stability, combat distorted thoughts, and reinforce use of healthy coping skills. Narrative Note: []
--- NOTE | 2024-12-04 11:00 | BH.SGPN.GN ---
Behaviors/Verbalizations/Mental Status: []Pt alert and oriented, appropriate grooming/appearance. Eye contact good. Motor activity appropriate. Speech within normal limits. Affect congruent, mood euthymic. Thoughts linear, logical, no signs of hallucinations or delusions. Client Response/Progress/Benefit: []Pt was an active participant in group discussions. Attentive during psychoeducation. In small group pt along with peers developed an active plan for their crisis warning signs. Pt identified three crisis warning signs as well as an action plan for each. One crisis warning sign was lack of self-care. Pt identified strategies to help with this such as: scheduling hygiene tasks, wearing clothes that make her feel good, engage in a hobby, and start small with putting makeup on to feel good again. Benefited from increased awareness of crisis warning signs and by developing crisis intervention strategies. Will continue in IOP to improve confidence, challenge negative thoughts, and prevent decompensation.
--- NOTE | 2024-12-06 09:00 | BH.SGPN.GN ---
Behaviors/Verbalizations/Mental Status: [] Eye contact is good. Motor activity is appropriate. Appearance is casual. Speech is Appropriate. Mood is euthymic. Affect is full. Thoughts are linear and logical. No evidence of psychosis. Client Response/Progress/Benefit: [] Pt was an active participant in group discussions. Attentive. Emotion for today is ?tired but positive?. Talked about stressors regarding finances and her health which impact her mental health functioning. She is challenging her core mistaken beliefs regarding her weight and self-esteem and believes that she is making progress. ? I feel more capable?. Progress noted. Benefited from group support, encouragement, and feedback. Will continue in IOP to maintain prevent decompensation, increase healthy coping, and improve functioning. Narrative Note: []
--- NOTE | 2024-12-06 11:10 | BH.SGPN.GN ---
Behaviors/Verbalizations/Mental Status: []Pt alert and oriented, casually dressed and groomed. Eye contact fair. Motor activity appropriate. Speech within normal limits. Affect congruent, mood euthymic. Thoughts linear, logical, no signs of hallucinations or delusions. Client Response/Progress/Benefit: [] Client responded well to session AEB listening attentively to peers, providing input, as well as taking notes throughout. Group discussed different styles of boundary setting. Worked with group to discuss positive and negative consequences from each boundary style. Participated in small group discussion brainstorming various strategies for improving healthy boundary setting. Pt took time to complete reflection on which skills would like to implement to improve boundaries. Seemed to benefit from increased awareness of how different boundary styles can impact mental health. Will continue IOP tx promote use of healthy coping skills, challenge distorted thoughts, and prevent decompensation.
--- NOTE | 2024-12-06 11:40 | BH.MDN ---
Multi-Disciplinary Note Note 45-min Individual: Time Started:: 10:20 Date: 12/06/24 Purpose of session/treatment goals addressed:: To review progress, discuss current anxiety symptoms, and work on self-esteem building. Eye Contact:: Good Motor Activity:: Appropriate Appearance:: Neat Speech:: Appropriate Mood:: Euthymic and Anxious Affect:: Full Thoughts:: Linear, Logical and No evidence of hallucinations/delusions noted Staff Interventions:: thought challenging, discharge planning, strengths perspective, goal setting and other (self-compassion, dialectical thinking ) Client Response:: Pt responded well to session, open to meeting with therapist. Pt reports feeling a little less anxious, but pt still feels her anxiety is higher than baseline. Discussed reasons for pt's higher anxiety and pt gained insight that she is currently facing a lot of healthy stress in her life including planning a wedding which would contribute to higher anxiety levels. Pt shared her appointments with her new providers have been going well and pt feels hopeful that she will continue to have good care through [facility] following IOP. Pt stated she would also like to do IOP aftercare and pt wants to work on building a really solid aftercare plan. Pt shared although she feels she is coping much better than she used to, pt is worried that without a concrete plan she will fall back into old habits. Discussed things that could lead to returning to old habits and one of those things were perfectionistic thinking and not allowing herself rest. Discussed ways pt can continue to work on this through self-compassion and dialectical thinking. Pt learned the components of self-compassion and pt shared belief this could benefit her. Pt willing to work on using self-compassion for homework especially during situations where pt feels higher levels of anxiety or self-judgment. Risks/Concerns:: Pt denies any suicidal ideation, plan, or intent. Pt denies any thoughts of Progress Toward Goals/Plan:: Pt continues to make progress towards tx goals AEB pt's report of improving functioning and ability to regulate emotions better than pt was previously. Pt states within the next two weeks she feels she will be ready to discharge, but pt wants to create a solid aftercare plan. This will be the focus on the next session. Pt reports her anxiety is still higher than baseline and pt wants to further reduce that as well prior to discharge. Pt will continue IOP tx to promote gains, improve daily functioning, and reinforce healthy coping skills. Time Stopped:: 11:00
--- NOTE | 2024-12-07 10:15 | BH.SGPN.GN ---
Behaviors/Verbalizations/Mental Status: []Pt alert and oriented, neatly dressed and groomed. Eye contact good. Motor activity appropriate. Speech within normal limits. Affect congruent, mood euthymic. Thoughts linear, logical, no signs of hallucinations or delusions. Client Response/Progress/Benefit: [] Pt engaged and actively participating in discussion, taking notes. Pt attentive during psychoeducation about the window of tolerance and noted personal connections. Group identified what contributes to low distress tolerance. The group gained awareness of the three zones of tolerance and pt was able to identify what they look like in each zone. Pt shared personal signs in hyperarousal zone are: ?tummy issues? passive-aggressive behaviors, and avoidance. Pt shared signs in the window of tolerance, they feel secure, confident, and social. Pt appeared to benefit from psychoeducation on distress tolerance and practicing self-reflection. Pt will continue IOP tx to improve daily functioning, combat negative self-talk, and improve self-confidence. Narrative Note: []
--- NOTE | 2024-12-07 11:15 | BH.SGPN.GN ---
Behaviors/Verbalizations/Mental Status: []Pt alert and oriented, casually dressed and groomed. Eye contact good. Motor activity appropriate. Speech within normal limits. Affect congruent, mood euthymic. Thoughts linear, logical, no signs of hallucinations or delusions. Client Response/Progress/Benefit: [] Pt responded well to session AEB taking notes and contributing to discussion throughout. Pt engaged as group continued discussion on distress tolerance and the mental health benefits of widening their overall Window of Tolerance. Pt engaged with group in experiential activity provided input on connections between variables in the activity and distress tolerance. Worked within small groups to identify strategies to increase distress tolerance and reduce hyper-arousal and hypo-arousal states. Identified wanting to begin implementing distress tolerance skills of: mood tracking, TIPP, and grounding. Pt appeared to benefit from gaining insight and learning strategies to increase distress tolerance. Pt will continue IOP tx to promote use of healthy coping skills, improve mood stability, and prevent decompensation. Narrative Note: []
--- NOTE | 2024-12-10 09:00 | BH.SGPN.GN ---
Behaviors/Verbalizations/Mental Status: [] Pt alert and oriented, Neatly dressed and groomed. Eye contact good. Motor activity appropriate. Speech within normal limits. Affect congruent, mood anxious. Thoughts linear, logical, no signs of hallucinations or delusions. Reviewed pt?s symptom tracker, 0/5 with 5 being severe for risk for suicidal ideation, indicates a 0/5 for plan, and intent to kill self. Pt does not appear to be imminent risk to harm self.12/10/24. Client Response/Progress/Benefit: []Pt was an active participant in group discussions. Attentive. Per patients daily symptom tracker, pt indicates a 1/5 for depression and a 1/5 for anxiety, with 5 being severe. Pt's mental health positive this week was making it through a long weekend, and being able to pace herself as to not cause a health flare up. Pt's other positive was making it to group despite being tired from the long weekend. Pt's reported stressor is a in her fiance's family, and being nervous for an appointment with a functional medicine doctor. Pt showed good insight into the anxiety about the appointment, stating that she knew that she was engaging in cognitive distortions which were making her more nervous. Pt also expressed feeling anxious about having a potential health flare up during IOP. Pt was supportive and attentive to others in the group. Pt seemed to benefit from support from peers. Will continue IOP tx to promote healthy coping mechanisms, reduce negative thinking patterns, and prevent decompensation.
--- NOTE | 2024-12-10 10:15 | BH.SGPN.GN ---
Behaviors/Verbalizations/Mental Status: [] Eye contact is good. Motor activity is appropriate. Appearance is casual. Speech is Appropriate. Mood is content. Affect is congruent. Thoughts are linear and logical. No evidence of psychosis. Client Response/Progress/Benefit: [] Pt engaged in session AEB listening attentively to others and providing input throughout. Pt engaged in activity, able to connect how it can be uncomfortable and difficult to practice acceptance when situations are out of one?s own control. Identified what they are struggling to accept in personal life. Worked with peer group to define acceptance and identify the benefits that acceptance can bring. Benefits included; reduce anxiety, reduced stress, helps one to focus on situations we can change, and decreased negative self-talk. Seemed to benefit from increased awareness of the meaning as well as the importance of acceptance. Will continue in IOP to improve emotion regulation, challenge reassurance seeking, and prevent decompensation. Narrative Note: []
--- NOTE | 2024-12-10 11:15 | BH.SGPN.GN ---
Behaviors/Verbalizations/Mental Status: []Pt alert and oriented, casually dressed and groomed. Eye contact good. Motor activity appropriate. Speech within normal limits. Affect congruent, mood content. Thoughts linear, logical, no signs of hallucinations or delusions. Client Response/Progress/Benefit: [] Pt responded well to session AEB taking notes and contributing to discussion throughout. Pt engaged as group continued discussion on acceptance and the mental health benefits of practicing acceptance. Pt and peers identified what makes acceptance challenging and pt completed a self-reflection exercise on what is hard to accept in pt's life. Pt identified something that is currently hard to accept as ?physical health and symptoms.? Pt stated by not accepting this, it leads to ?over-working, not delegating, and lacking awareness?. Group identified strategies to increase acceptance. Pt noted wanting to work on ?practicing balance? as a strategy for improving acceptance. Pt appeared to benefit from gaining insight and learning strategies to increase acceptance. Pt will continue IOP tx to promote mood stability, combat negative thinking patterns, and improve daily functioning. Narrative Note: []
--- NOTE | 2024-12-11 09:00 | BH.SGPN.GN ---
Behaviors/Verbalizations/Mental Status: [] Eye contact is good. Motor activity is appropriate. Appearance is casual. Speech is Appropriate. Mood is anxious. Affect is congruent. Thoughts are linear and logical. No evidence of psychosis. Client Response/Progress/Benefit: [] Pt was an active participant in group discussions. Attentive. Mood today is ?neutral?. Shared continued stress related to health concerns which impact her mental health specifically anxiety. She shared a recent mental health win in which she identified she was overwhelmed and took the steps necessary to allow herself to rest rather than psuh herself. Got benefit from the rest. Progress noted. Benefited from group support, encouragement, and feedback. Will continue in IOP to prevent decompensation, stabilize mood, and increase healthy coping. Narrative Note: []
--- NOTE | 2024-12-11 10:10 | BH.SGPN.GN ---
Behaviors/Verbalizations/Mental Status: [] Pt alert and oriented, casually dressed and groomed. Eye contact good. Motor activity appropriate. Speech within normal limits. Affect congruent, mood euthymic. Thoughts linear, logical, no signs of hallucinations or delusions. Client Response/Progress/Benefit: [] Pt responded well to session AEB sharing and listening attentively to others. Group provided examples of types of support (professional, pets, hobbies, community, spouse, spirituality, co-workers, family, etc) as well as benefits of having social support, including: validation, get perspective, and accountability. Pt also participated in group discussion regarding the barriers to accessing support and pt?s barriers included; isolation, overconfidence, reliance on unhealthy coping, and self-sabotage. Pt participated in experiential activity illustrating the impact communication, boundaries, and patience play in creating healthy support systems. Pt appeared to benefit from increased knowledge of the benefits of social support and greater self-awareness. Pt to continue IOP to prevent decompensation, increase healthy coping, and improve functioning. Narrative Note: []
--- NOTE | 2024-12-11 11:10 | BH.SGPN.GN ---
Behaviors/Verbalizations/Mental Status: []Client alert and oriented, casually dressed and groomed. Eye contact good. Motor activity appropriate. Speech within normal limits. Affect congruent, mood anxious and depressed. Thoughts linear, logical, no signs of hallucinations or delusions. Client Response/Progress/Benefit: [] Pt participated throughout AEB contributing to discussion, providing examples, and taking notes. Pt provided input during discussion on the types of support our supports can provide. Pt able to identify current support system and barriers that get in the way of using supports. Pt reported after identifying what type of supports pt receives, pt gained awareness that pt could benefit from more social and emotional support by reaching out to supports outside of her fiance. Pt seemed to benefit from identifying the type of support pt needs to work on improving. Pt recommended to continue IOP tx to promote increase positive self-talk, improve mood stability, and prevent decompensation. Narrative Note: []
--- NOTE | 2024-12-13 10:10 | BH.SGPN.GN ---
Behaviors/Verbalizations/Mental Status: [] Eye contact is good. Motor activity is appropriate. Appearance is casual. Speech is Appropriate. Mood is content. Affect is congruent. Thoughts are linear and logical. No evidence of psychosis Client Response/Progress/Benefit: [] Pt receptive of session, actively engaged throughout AEB taking notes, providing input, and contributing in small group discussion. Appeared to connect with group topic of automatic thoughts and cognitive distortions, as well as the impact of thought patterns on mental health, coping behaviors, and relationships. This particular group is very heavy on psychoeducation and pt appeared to connect with distortions and how they can impact functioning. Identified struggling with several of the distortions. Pt appeared to benefit from gaining insight on distorted thinking patterns and how this impacts overall mental health. Will continue IOP to promote healthy coping, challenge negative thoughts, and prevent decompensation.
--- NOTE | 2024-12-13 11:10 | BH.SGPN.GN ---
Behaviors/Verbalizations/Mental Status: [] Eye contact is good. Motor activity is appropriate. Appearance is casual. Speech is Appropriate. Mood is euthymic. Affect is congruent. Thoughts are linear and logical. No evidence of psychosis. Client Response/Progress/Benefit: [] Pt was an active participant and responded well to session AEB input and examples during group activity. Group discussed and practiced methods of reframing cognitive distortions. Pt participated in identifying cognitive distortions when examples were provided. Pt discussed in group the different strategies to overcome the distortions. Pt identified cognitive distortion they used most often and made plan to identify and challenge thoughts that contribute to it as homework over the next couple of days. Pt reports having to use thought challenging a lot lately. Pt did well in small group during experiential activity and helped group identify answers. Will continue tx to improve mood stability and reinforce healthy coping skills. Narrative Note: []
--- NOTE | 2024-12-13 13:35 | BH.MDN ---
Multi-Disciplinary Note Note 45-min Individual: Time Started:: 09:15 Date: 12/13/24 Purpose of session/treatment goals addressed:: To address current stressors and to begin working on maintenance to prepare for discharge. Eye Contact:: Good Motor Activity:: Appropriate Appearance:: Neat Speech:: Appropriate Mood:: Euthymic Affect:: Congruent Thoughts:: Linear, Logical and No evidence of hallucinations/delusions noted Staff Interventions:: thought challenging, CBT techniques, mindfulness skills, discharge planning, strengths perspective and other (completed maintenance plan) Client Response:: Pt responded well to session, open to meeting with therapist. Pt reports she has been coping well and feels that her medication change has helped. Pt reports some current stressors with her father, who pt has a complicated relationship with. Pt shared she feels she is managing the stressor well and not letting it overcome her day. Pt reported she has worked to set boundaries with him and there have been good moments as well as difficult ones. Pt wanted to work on maintenance so pt can continue to make progress after discharge from IOP. Pt's maintenance plan included coping plans for depression and anxiety. The plans included triggers, warning signs, and things pt can do to cope. We also discussed things that could make symptoms worse which pt identified as isolating, overdoing it, and not practicing self-care. Pt also looked at what self-care looks like on a daily, weekly, and monthly basis. Some of pt's daily self-care included taking meds, journaling, doing a grounding skill, moving her body, and eating. Pt's weekly included practicing meditation, therapy, work/socializing, and cleaning. Pt and therapist normalized pt's worries about discharging and pt was encouraged to remind herself of her growth and ability. Risks/Concerns:: Pt denies any suicidal ideation, plan, or intent. Pt denies any thoughts of . Progress Toward Goals/Plan:: Pt continues to make progress towards tx goals AEB pt's reduction of DSM-5 symptoms since admission and pt's self-report of improving functioning. Pt reports ongoing stress with her father, her health, and her anxiety that are still impacting pt's functioning. Pt will continue IOP tx for two more weeks to reinforce healthy coping skills and further improve mood. Time Stopped:: 10:00
--- NOTE | 2024-12-18 11:06 | BH.MDN ---
Multi-Disciplinary Note Note 30-min Individual: Time Started:: 10:15 Date: 12/18/24 Purpose of session/treatment goals addressed:: To identify coping skills for anxiety, depression, and mood instability using the 5 categories of coping skills. Eye Contact:: Good Motor Activity:: Appropriate Appearance:: Neat Speech:: Appropriate Mood:: Euthymic Affect:: Congruent Thoughts:: Linear, Logical and No evidence of hallucinations/delusions noted Staff Interventions:: CBT techniques, mindfulness skills, discharge planning, strengths perspective and other (went over the 5 categories of coping skills and identified skills for each category) Client Response:: Pt responded well to session, open to meeting with therapist. 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 Pt shared her landry quit his job yesterday because of the toxic work environment, but pt feels he will find something else quickly. Pt also shared that her sister is struggling with her mental health, so pt is trying to be helpful without taking on her emotions. Pt stated she feels anxious, but ready to discharge next week and pt wanted to continue to work on maintenance. Reviewed the 5 categories of coping (distraction, emotional release, mindfulness, self-love, and thought challenging). Pt was able to come up with three coping skills for each category and pt wrote out specific ways she could practice those skills. Pt wants to make a coping skills keychain with the notecards that pt made today. Risks/Concerns:: Pt denies any suicidal ideation, plan, or intent. Pt denies any thoughts of . Progress Toward Goals/Plan:: Pt continues to make progress towards tx goals AEB pt's reduction of DSM-5 symptoms since admission and pt's self-report of improving functioning. Pt reports ongoing stress with her father, her health, and her cynthia's employment. Pt reports she started taking Zoloft yesterday which was part of pt's plan with her outpatient psych provider and pt reports so far so good. Pt will continue IOP tx for one more week to reinforce healthy coping skills and further improve mood. Time Stopped:: 10:40
--- NOTE | 2024-12-18 11:10 | BH.SGPN.GN ---
Behaviors/Verbalizations/Mental Status: []Pt alert and oriented, casually dressed and groomed. Eye contact fair. Motor activity appropriate. Speech within normal limits. Affect congruent, mood euthymic. Thoughts linear, logical, no signs of hallucinations or delusions. Client Response/Progress/Benefit: [] Pt responded well to session, attentive and engaged in group discussions and activity. Actively engaged in continued discussion about up activities and down activities. Active participant as group discussed values and the benefits that knowing one's values can have on one's mental health. Client completed provided worksheet in which they identified most important personal values and wrote down one opposite action activity can engage in to be more congruent with his value. Benefited from increased awareness of their up activities and how incorporating their values into behavioral activation goals can positively impact mental health. Will continue in IOP to promote healthy coping, challenge negative thoughts, and prevent decompensation.
--- NOTE | 2024-12-19 10:10 | BH.SGPN.GN ---
Behaviors/Verbalizations/Mental Status: [] Eye contact is fair to good. Motor activity is appropriate. Appearance is casual. Speech is soft, limited input. Mood is euthymic. Affect is congruent. Thoughts are linear and logical. No evidence of psychosis. Client Response/Progress/Benefit: [] Client was anactive participant in group discussion and experiential activity. Attentive during psychoeducation on resilience. Participated in interactive discussion with peers on the definition of resilience and where it comes from. Group identified that resiliency can be impacted by; past experiences, personality, and current mental health state. Client gave personal example of resiliency with struggling with health issues and adapting lifestyle. Group also worked together to identify the benefits of being resilient and how it is related to mental health. Able to relate experiential activity of group juggle to topics of resilience. Worked well with peers in small group in which they identified factors that contribute to resilience. Benefited from increased awareness of resilience and the factors that contribute to building resilience. Will continue in IOP to prevent decompensation and further promote mood stability. Narrative Note: []
--- NOTE | 2024-12-19 11:10 | BH.SGPN.GN ---
Behaviors/Verbalizations/Mental Status: [] Client alert and oriented, casually dressed and groomed. Eye contact fair. Motor activity appropriate. Speech within normal limits. Affect congruent, mood euthymic . Thoughts linear, logical, no signs of hallucinations or delusions Client Response/Progress/Benefit: [] Client responded well to session AEB completing the resilience worksheet provided. Client participated in the discussion and worked cooperatively with group to identify strategies to enhance each of the components discussed. Client reports belief they already use resilience trait of moving towards goals.? Client stated they would like to continue to develop resilience trait of ?working on taking care of themselves.? Client seemed to benefit from discussing strategies for improving personal resilience and identifying resilience traits Client already possesses.. Will continue IOP tx to promote mood stability, reduce negative thinking patterns, and increase distress tolerance skills. Narrative Note: []
--- NOTE | 2024-12-20 09:00 | BH.SGPN.GN ---
Behaviors/Verbalizations/Mental Status: [] Eye contact is good. Motor activity is appropriate. Appearance is casual. Speech is Appropriate. Mood is euthymic. Affect is full. Thoughts are linear and logical. No evidence of psychosis. Reviewed daily check in sheet and no reports of suicidal ideations or intent. Client Response/Progress/Benefit: [] Narrative Note: []
--- NOTE | 2024-12-20 10:10 | BH.SGPN.GN ---
Behaviors/Verbalizations/Mental Status: [] Client alert and oriented, casually dressed and groomed. Eye contact good. Motor activity appropriate. Speech within normal limits. Affect congruent, mood euthymic Thoughts linear, logical, no signs of hallucinations or delusions. Client Response/Progress/Benefit: [] Client responded well to session, attentive during psychoeducation on SMART goals (Specific, Measurable, Achievable, Realistic, and Time-bound) and engaged in group experiential activity. Participated in an interactive discussion with peers in which they worked together to define what a goal is and the benefits of having goals. Group identified benefits as; helps MH, improves motivation, improves confidence, and personal growth. Participated in interactive discussion in which group identified barriers to setting goals and following through with goals. Group barriers included health, lack of supports, making excuses, and avoidance. Benefited from increased awareness of benefits and strategies for goal-setting. Will continue in IOP tx to improve mood stability, reduce negative thinking patterns, and improve daily functioning. Narrative Note: []
--- NOTE | 2024-12-20 11:10 | BH.SGPN.GN ---
Behaviors/Verbalizations/Mental Status: [] Client alert and oriented, casually dressed, appropriately groomed. Eye contact good. Motor activity appropriate. Speech within normal limits. Affect congruent, mood euthymic. Thoughts linear, logical, no signs of hallucinations or delusions. Client Response/Progress/Benefit: [] Client was engaged during discussion and willing to complete the worksheet challenging them to develop a personal SMART goal. Client chose the goal of eating 30g of protein 3-4 days a week. Client stated this will benefit them by increasing energy. Client identified barriers which included being tired or struggling to eat that much. Identified for being tired they will prep ahead of time. Client receptive to identifying solutions for these barriers and willing to begin working on this goal. Benefited from this group by developing a short-term SMART goal related to mental health. Will continue IOP tx to increase healthy coping, improve daily functioning, and prevent decompensation. Narrative Note: []
--- NOTE | 2024-12-25 10:15 | BH.SGPN.GN ---
Behaviors/Verbalizations/Mental Status: []Eye contact is fair. Motor activity is appropriate. Appearance is neat. Speech is Appropriate. Mood is content. Affect is congruent. Thoughts are linear and logical. No evidence of psychosis. Client Response/Progress/Benefit: [] Pt was an active participant in group discussions. Attentive during psychoeducation on the 4 communication styles (Passive, Passive-Aggressive, Aggressive, and Assertive) and the obstacles to effective communication. Contributed during interactive discussion on the benefits of communicating effectively. Worked well with peers to identify the benefits and disadvantages to the different communication styles. Pt believes that they are primarily assertive, but she also can be aggressive with her fianc?. Benefited from increased understanding of communication styles and how these can impact effective communication. Will continue in IOP to reinforce healthy coping skills and promote mood stability. Narrative Note: []
--- NOTE | 2024-12-25 11:10 | BH.SGPN.GN ---
Behaviors/Verbalizations/Mental Status: []Pt alert and oriented, casually dressed and appropriately groomed. Eye contact good. Motor activity calm. Speech within normal limits. Affect congruent, mood euthymic and engaged. Thoughts linear, logical, no signs of hallucinations or delusions. Client Response/Progress/Benefit: [] Pt responded well to session AEB Pt listening attentively to others and providing input during group discussion on the pay offs and costs of the different communication styles. Pt able to connect how current communication style impacts mental health. Connected with peers? comments about the importance of using assertive communication. Pt seemed to benefit from increasing awareness of healthy strategies to improve communication. Pt stated she would like to work on being more assertive with her fiance instead of relying on him to guess how she is feeling based on her body language. Will continue IOP tx to prevent decompensation and promote healthy coping.
--- NOTE | 2024-12-26 09:00 | BH.SGPN.GN ---
Behaviors/Verbalizations/Mental Status: [] Pt alert and oriented, Neatly dressed and groomed. Eye contact good. Motor activity appropriate. Speech within normal limits. Affect congruent, mood calm. Thoughts linear, logical, no signs of hallucinations or delusions. Reviewed pt?s symptom tracker today, denies suicidal ideation, plan, and intent.12/26/24. Client Response/Progress/Benefit: []Pt was an active participant in group discussions. Attentive. Per patients daily symptom tracker, pt indicates a 0/5 for depression and a 1/5 for anxiety, with 5 being severe. Pt shared their mental health win as putting in multiple new job applications. Pt stated that this was a win due to her having to combat her anxiety about reducing hours at her current job to get a second job. Pt's other mental health win was getting the paperwork completed for another IOP program that she will be attending after discharging. Pt's stressor was ongoing health issues that require different tests and appointments that are expensive and time consuming. Pt was supportive and attentive to others in the group. Pt seemed to benefit from support from peers. Pt will discharge from [facility] on 12/27/24.
--- NOTE | 2024-12-26 10:10 | BH.SGPN.GN ---
Behaviors/Verbalizations/Mental Status: []Pt alert and oriented, casually dressed and groomed. Eye contact good. Motor activity appropriate. Speech within normal limits. Affect congruent, mood euthymic. Thoughts linear, logical, no signs of hallucinations or delusions. Client Response/Progress/Benefit: []Pt responded well to session AEB pt listening attentively to others and providing input throughout group discussions. Pt worked with group to identify potential barriers to effective problem-solving. Pt attentive and engaged during psychoeducation about the different problem-solving styles (impulsive-careless, avoidant, and problem solving). Pt shared current problem-solving style they utilize is impulsive style.? Pt seemed to benefit from increased awareness of current problem-solving style and the impact this style has on their mental health. Will continue IOP tx to prevent decompensation, promote use of healthy coping skills, and challenge negative thoughts. Narrative Note: []
--- NOTE | 2024-12-26 11:00 | BH.SGPN.GN ---
Behaviors/Verbalizations/Mental Status: []Client alert and oriented, casually dressed and groomed. Eye contact good. Motor activity appropriate. Speech within normal limits. Affect congruent, mood euthymic. Thoughts linear, logical, no signs of hallucinations or delusions. Client Response/Progress/Benefit: [] Pt engaged in session AEB contributing to discussion and engaging in small group. Attentive during discussion on strategies for more effectively solving problems in personal life. Pt participated in small group for activity and did well practicing problem-solving skills with the group in the moment. Pt identified a current problem they are struggling to solve as: addressing disordered eating. Reports next step in resolving this as: attending eating disorder IOP. Appeared to benefit from gaining strategies to help Pt better manage daily problems. Will continue IOP tx improve distress tolerance, challenge distortions, and prevent decompensation. Narrative Note: []
--- NOTE | 2024-12-26 11:45 | BH.AFTERPLAN ---
Aftercare Plan Demographics Treatment End Date:: 12/27/24 Psychiatrist:: Isela Newton Psychiatrist Office #:: [phone] [facility]/IOP Therapist:: Terri Maravilla Therapist Phone #:: [phone] Medications Home Medications Probiotic DAILY 11/09/24 albuterol sulfate 90 mcg/actuation aerosol inhaler 2 puff inhalation PRN shortness of breath or wheezing 11/09/24 aripiprazole 2 mg tablet (Abilify) 2 mg PO DAILY 11/09/24 azo womens priobiotic 11/09/24 budesonide-formoterol HFA 80 mcg-4.5 mcg/actuation aerosol inhaler 2 puff inhalation BID 11/09/24 buspirone 15 mg tablet 15 mg PO BID 11/09/24 cholecalciferol (vitamin D3) 25 mcg (1,000 unit) capsule (Vitamin D3) 25 mcg PO DAILY 11/09/24 cranberry-B.amgffpvyd-C-Tt phos 480 mg-20 mg-100 million cell tablet (Cranberry-Probiotic) tab PO 11/09/24 dicyclomine 20 mg tablet 20 mg PO TID PRN abdominal pain 11/09/24 drospirenone 3 mg-ethinyl estradiol 0.03 mg tablet 1 tab PO 11/09/24 ferrous sulfate 325 mg (65 mg iron) tablet (Feosol) 325 mg PO DAILY 11/09/24 lions jen 11/09/24 magnesium chelate, malate (OptiMag) 125 mg PO DAILY 11/09/24 propranolol 10 mg tablet 10 mg PO BID 11/09/24 psyllium 500 mg capsule 1.56 g PO DAILY 11/09/24 venlafaxine 37.5 mg capsule,extended release 24 hr (Effexor XR) 37.5 mg PO DAILY 11/09/24 venlafaxine 75 mg capsule,extended release 24 hr (Effexor XR) 75 mg PO DAILY 11/09/24 Plan Details Progress/Aftercare Plan Details:: Pt has responded well to treatment as evidenced by Pt consistently attending IOP sessions and their reduction of DSM-5 scores since admission. Pt was always attentive and receptive to learning during group and individual sessions. Pt actively applied coping skills outside of IOP and reports overall their mood is improved and pt is functioning better than several months ago. Pt?s overall symptom reduction is 56% since admission with anger decreasing by 67%, depression decreasing by 67%, and anxiety decreasing by 50%. Pt has increased self-compassion and pt is continuing to work on dialectical thinking. Now that pt is feeling better, pt wants to focus on their eating disorder and pt plans to begin an ED IOP. Pt will follow up with [facility] for counseling and medication management. Strategies for Success:: 1. Opposite action! Continue to break that cycle of anxiety, guilt, and depression by not letting emotions be the only drivers of your bus. 2. Remember that thoughts are thoughts NOT facts! You have power in if you give thoughts the time of day or not. 3. self-care! You deserve to take time for you and you also deserve to face the not so fun self-care like delegating tasks and advocating for yourself 4. Self-compassion! You are human and you will make a mistake?BUT that doesn?t mean you are a failure or not good enough. Remember there are no bad parts! 5. Continue to practice acceptance 6. Practice positive self-talk and keep track of your wins. 7. Remember progress isn?t linear! You may have a setback or bump in the road, but that doesn?t mean you?ve lost all progress. 8. self-reflection and self-awareness. 9. Be understanding with yourself and try to see the whole picture, not just the snapshot. 10. Live in the centeno!! Appointments Appointments/Referrals to Other Services:: 1. Follow up with [facility] for meds and counseling. 2. IOP aftercare starting 01/03/25 3. ED IOP beginning next week.
--- NOTE | 2024-12-26 11:46 | BH.DS_ITS ---
Discharge Summary Demographics Date of Admission:: 11/06/24 Discharge Date: 12/27/24 Presenting Problems at Admission:: Pt is a 19-year-old who was referred to IOP due to worsening symptoms of anxiety, depression, and chronic health issues. At admission, pt reports symptoms of lack of motivation, feeling like a burden, anhedonia, guilt, issues with sleep, racing thoughts, anxiety constantly, and fear that something bad will happen. Pt's symptoms are impacting daily func tioning and pt is planning to take leave from work due to mental health symptoms. Discharge Diagnoses:: MDD, recurrent, severe, without psychosis F 33.2; KALYAN; Eating Disorder Unspecified. Reason for Discharge:: Pt has accomplished her tx goals AEB her reduction of DMS-5 symptoms, her self-report of improved functioning and mood, and improved outlook. Pt's symptoms of anxiety and depression are no longer hindering her functioning and pt will transition to outpatient therapy. Treatment Progress During Treatment & Response: Pt has responded well to treatment as evidenced by Pt consistently attending IOP sessions and their reduction of DSM-5 scores since admission. Pt was always attentive and receptive to learning during group and individual sessions. Pt actively applied coping skills outside of IOP and reports overall their mood is improved and pt is functioning better than several months ago. Pt?s overall symptom reduction is 56% since admission with anger decreasing by 67%, depression decreasing by 67%, and anxiety decreasing by 50%. Pt has increased self-compassion and pt is continuing to work on dialectical thinking. Now that pt is feeling better, pt wants to focus on their eating disorder and pt plans to begin an ED IOP. Pt will follow up with [facility] for counseling and medication management. Issues Still to be Addressed:: Pt reports plan to attend an ED IOP as pt feels she is now able to focus on healing her relationship with food and learn how to manage her eating disorder. Pt can also benefit from continuing to work on self- compassion, grounding skills, and improving self-confidence. Discharge Recommendations/Instructions:: Pt will continue seeing her outpatient providers for continuity of care. Pt has a psych provider and therapist through [facility] and she has an appointment on 12/28/24. Pt reports plan to begin her ED IOP on Tuesday12/31/24 and pt will begin IOP aftercare group on 01/03/25. Discharge Handout
--- NOTE | 2024-12-27 09:00 | BH.SGPN.GN ---
Behaviors/Verbalizations/Mental Status: [] Eye contact is good. Motor activity is appropriate. Appearance is casual. Speech is Appropriate. Mood is euthymic. Affect is full. Thoughts are linear and logical. No evidence of psychosis. Reviewed daily check in sheet and no reports of suicidal ideations Client Response/Progress/Benefit: [] Pt was an active participant in group discussions. Attentive. Able to identify mental health wins and healthy habits. Shared with the group that toay is her last day in [facility] level of care. Set to discharge successfully. Discussed her progress in [facility]. Believes that she benefited most from the support and practicing being vulnerable around others. She feels confident in her discharge and aftercare plans. Progress noted. Benefited from group support and encouragement. Will be discharged today. Narrative Note: []
--- NOTE | 2024-12-27 09:54 | BH.MDN ---
Multi-Disciplinary Note Note 30-min Individual: Time Started:: 09:30 Date: 12/27/24 Purpose of session/treatment goals addressed:: To process any current stressors, review discharge, and review progress. Eye Contact:: Good Motor Activity:: Appropriate Appearance:: Neat Speech:: Appropriate Mood:: Euthymic and Anxious Affect:: Full Thoughts:: Linear, Logical and No evidence of hallucinations/delusions noted Staff Interventions:: discharge planning, strengths perspective and reviewed DSM-5 Client Response:: Pt responded well to session, open to meeting with therapist. Pt reports she has been doing well and she feels both scared and excited to leave IOP. Pt stated she feels that her depression and anxiety have both decreased enough that it is no longer impacting her daily functioning, but she still has times when she struggles, which is to be expected. Pt shared since she is doing better with her mental health, she has chosen to return to eating disorder treatment and she plans to do a virtual IOP that starts next week. Pt reports that she has been making improvements, but she still struggles with eating and has fear around eating in public. Pt also has outpatient therapy lined up and she wants to do the IOP aftercare group for maintenance with her anxiety and depression. Pt receptive to discussion on allowing herself time to rest as well as be idle as this is something pt struggles with. Pt acknowledges that she does tie her worth to how productive she is, so when she is bored it impacts how she views herself. Pt encouraged to continue working on this during outpatient therapy. Risks/Concerns:: Pt denies any suicidal ideation, plan, or intent. Pt denies any thoughts of . Progress Toward Goals/Plan:: Pt will discharge from IOP today as pt has accomplished her tx goals and no longer meets criteria for IOP level of care. Pt?s overall symptom reduction is 56% since admission with anger decreasing by 67%, depression decreasing by 67%, and anxiety decreasing by 50%. Pt has increased self-compassion and pt is continuing to work on dialectical thinking. Now that pt is feeling better, pt wants to focus on their eating disorder and pt plans to begin an ED IOP. Pt will follow up with [facility] for counseling and medication management. Time Stopped:: 09:50
--- NOTE | 2024-12-27 10:10 | BH.SGPN.GN ---
Behaviors/Verbalizations/Mental Status: [] Pt alert and oriented, casually dressed and groomed. Eye contact good. Motor activity appropriate. Speech within normal limits. Mood: euthymic. Affect: congruent. Thoughts linear, logical, no signs of hallucinations or delusions. Client Response/Progress/Benefit: [] Pt participated when prompted during group discussions. Attentive during psychoeducation on self-sabotage and its impact on mental health. Attentive as peers worked to define self-sabotage and identify reasons individuals perform self-sabotage behaviors (easy route at the time, feel as those we don't deserve any better, FOF, comfortable, etc). Attentive as peers identified the forms of self-sabotage that impact their mental health. Attentive during psychoeducation on types of self-sabotage; Procrastination, perfectionism, self-medication, poor communication,and chronic cancelling. Seemed to benefit from gaining awareness about the self-sabotage. Pt to continue IOP tx to promote use of healthy coping skills, challenge negative/distorted thoughts, and prevent decompensation.
--- NOTE | 2024-12-27 11:05 | BH.SGPN.GN ---
Behaviors/Verbalizations/Mental Status: [] Eye contact is good. Motor activity is appropriate. Appearance is casual. Speech is Appropriate. Mood is euthymic. Affect is full. Thoughts are linear and logical. No evidence of psychosis. Client Response/Progress/Benefit: [] Pt responded well to session, engaged and contributing. Pt discussed with group things that contribute to mental wellness life. With peers, pt discussed things that would sabotage one's mental health wellness. Pt identified things pt personally does to sabotage as perfectionism, avoidance, procrastination, and impulsivity. Pt attentive during psychoeducation on ways to reduce self-sabotage and pt selected oppositve-action, self-awareness, and realistic affirmations?as skills that could help pt reduce self-sabotaging behaviors. Pt appeared to benefit from learning skills and gaining awareness of self-sabotaging behaviors. Pt is set to discharge successfully from [facility] today. Narrative Note: []
== END 2024-12-27 12:06 | disposition home or self-care (01) ==
LOC: BHIOP 08:05
PROVIDERS: Referring Provider Internal Medicine; Visit Provider Internal Medicine
DX: F33.2 Major depressive disorder, recurrent severe without psychotic features (principal); F41.1 Generalized anxiety disorder; F50.9 Eating disorder, unspecified
CPT/HCPCS: S9480; 90832; 90834; 90853

== ENCOUNTER 2025-01-03 08:00 | Outpatient (RCR) | payer SELFPAY ==
--- NOTE | 2025-01-03 14:00 | BH.SGPN.GN ---
Behaviors/Verbalizations/Mental Status: []Pt alert and oriented, casually dressed and groomed. Eye contact good. Motor activity appropriate. Speech within normal limits. Affect constricted, mood euthymic. Thoughts linear, logical, no signs of hallucinations or delusions. Client Response/Progress/Benefit: [] Pt took notes and contributed to group discussions. Pt reports following up with their outpatient providers and taking medication. Pt identified coping skills pt has been using which included: exercise, reframing, goal setting, and journaling. Pt engaged in discussion self-love, what it is, and how it is formed. Pt worked with peers during the experiential activity and connected it back to acceptance and self-love. Pt shared they can work on being more realistic with their body to practice self-love. Pt appeared to benefit from learning about self-love strategies and how to accept all parts of themselves. Will continue IOP aftercare to promote gains and reinforce healthy coping skills. Narrative Note: []
--- NOTE | 2025-01-03 15:22 | BH.MTP ---
Master Treatment Plan Patient Information Program Physician:: Dr. Isela Newton Primary Therapist:: Terri MAJANO Psychiatric Diagnoses Psychiatric Diagnoses:: MDD, recurrent, severe, without psychosis F 33.2; KALYAN; Eating Disorder Unspecified. Diagnosis Code(s):: F 33.2 Estimated LOS Estimated LOS (in weeks):: 8 Problem/Goal #1 Problem/Goal #1 Stated Goal:: client will maintain or see a reduction in symptoms AEB client score on the DSM 5 cross-cutting measure and improve client's daily functioning. Objectives Objective #1: Stated Objective: Client will continue to consistently apply healthy coping skills to maintain progress made in IOP tx. Interventions: Through group therapy, client will review warning signs and triggers as well as healthy coping skills learned in IOP tx to successfully maintain gains while transitioning into outpatient therapy. Discharge Criteria: Client will have accomplished this goal when client's score on the DSM-5 cross-cutting measure has maintained or reduced over a 8 week period. Target Date: 02/28/25 Review Date: 01/31/25 Status: open Objective #2: Stated Objective: Client will learn and utilize 2-3 maintenance strategies to prevent decompensation from original IOP DSM-5 scores. Interventions: Through group therapy, client will be provided with education on healthy maintenance behaviors, relapse prevention techniques, and healthy coping strategies. Discharge Criteria: Client will have accomplished this goal when can report using at least 2 maintenance skills to prevent decompensation compared to original IOP DSM-5 scores Target Date: 02/28/25 Review Date: 01/31/25 Status: open
== END 2025-01-27 23:59 ==
LOC: BHOG 08:00
PROVIDERS: Referring Provider Student in an Organized Health Care Education/Training Program; Visit Provider Student in an Organized Health Care Education/Training Program
DX: F33.2 Major depressive disorder, recurrent severe without psychotic features (principal); F41.1 Generalized anxiety disorder; F50.9 Eating disorder, unspecified
CPT/HCPCS: 90853

== ENCOUNTER 2025-01-28 08:07 | Outpatient (RCR) | payer MEDICAID, SELFPAY ==
--- NOTE | 2025-01-31 14:00 | BH.SGPN.GN ---
Behaviors/Verbalizations/Mental Status: []Pt alert and oriented, casually dressed and appropriately groomed. Eye contact good. Motor activity appropriate. Speech within normal limits. Affect congruent, mood euthymic, anxious. Thoughts linear, logical, no signs of hallucinations or delusions. Client Response/Progress/Benefit: []Client active participant in group session AEB providing contributions to group discussion. Client reported they have been following through with counseling and medication consistency. Client identified utilizing several different coping skills to help continue to regulate emotions and challenge thoughts. Skills included: opposite action, music, and reaching out to healthy supports. Client attentive to psychoeducation about gratitude and provided contributions throughout. Client created gratitude plan for the week, this included thanking a support for their friendship. Client seemed to benefit from learning about gratitude and creating a week gratitude plan. Pt to continue IOP to promote utilization of healthy coping skills, challenge distortions, and prevent decompensation. Narrative Note: []
--- NOTE | 2025-01-31 16:03 | BH.TPR ---
Treatment Plan Review Demographics Date of Admission:: 01/03/25 Date of Treatment Plan Review:: 01/31/25 Admitting Diagnoses:: MDD, recurrent, severe, without psychosis F 33.2; KALYAN; Eating Disorder Unspecified Current Diagnoses:: MDD, recurrent, severe, without psychosis F 33.2; KALYAN; Eating Disorder Unspecified Patient Status Patient's Response to Treatment:: Pt continues to respond well to treatment AEB pt's consistent attendance, ongoing attentiveness and engagement in group discussions, and continued reporting use of skills outside treatment environment. Pt's symptoms are still 56% lower than they were at IOP admission. Status of Current Problems and Symptoms: Pt still has symptoms of anxiety and depression, but pt reports managing these symptoms well. Pt is currently in an eating disorder program and she reports this has caused some additional distress, but it also helping pt try and heal her relationship with food. Progress Problem #1: Problem Name:: Pt will maintain or see a reduction in sx Status of Goals:: Obj 1 - Complete with maintenance encouraged. Pt's depression decreased by 50% compared to IOP admission and anxiety has decreased by 63% compared to IOP admission. Obj 2 - complete with ongoing work encouraged. Pt had been reporting using dialectical thinking, opposite action, mindfulness, and exercise to manage anxiety and depression. Team Recommendations:: Recommended client continue IOP aftercare group in addition to attending regular outpatient counseling in order to maintain gains. Pt also recommended to continue working on self-compassion, practice self-care, and setting realistic goals.
--- NOTE | 2025-02-07 14:00 | BH.SGPN.GN ---
Behaviors/Verbalizations/Mental Status: []Pt alert and oriented, neatly dressed and groomed. Eye contact good. Motor activity appropriate. Speech within normal limits. Affect constricted, mood stressed. Thoughts linear, logical, no signs of hallucinations or delusions. Client Response/Progress/Benefit: [] Pt responded well to session, completed their self-reflection worksheet. Pt noted they have met with their therapist since last session and used coping skills like deep breathing, finding the m[place]ollum, opposite action, making time for hobbies, and reframing thoughts. Pt also noted they completed last week’s homework and found it helpful. Pt engaged well during the discussion of the components of self-compassion. Pt connected with the benefits of self-compassion and participated in the activity of reframing a recent setback using self-compassion. Pt used self-compassion to combat negative self-talk and shared plan to work on this throughout the week. Pt appeared to benefit from practicing self-compassion and connecting with peers. Will continue aftercare to promote mood stability and reinforce healthy coping skills. Narrative Note: []
== END 2025-02-27 23:59 ==
LOC: BHOG 08:07
PROVIDERS: Referring Provider Student in an Organized Health Care Education/Training Program; Visit Provider Student in an Organized Health Care Education/Training Program
DX: F33.2 Major depressive disorder, recurrent severe without psychotic features (principal); F41.1 Generalized anxiety disorder; F50.9 Eating disorder, unspecified
CPT/HCPCS: 90853